=== PATIENT | male | born 1965 | race American Indian/Alaskan Native ===

== ENCOUNTER 2020-11-08 07:23 | Emergency (ER) | payer MEDICAID ==
[2020-11-08 07:34] VITALS: BP 134/78
--- NOTE | 2020-11-08 07:45 | Emergency Department Report ---
Abscess Boil HPI - HPI Chief Complaint: Skin/Abscess/Foreign Body Stated Complaint: KNOT ON LFT SIDE/PAIN Time Seen by Provider: 11/08/20 07:37 Duration: 1 Day History: No Fever, No Pain, No Purulent Drainage, No Numbness, No Foreign Body, No Previous History, No Insect Bite HPI: Cc: I have a lumpn on my side.". HPI this is a 54-year-old male with history of tobacco dependence who presents with a lump left flank. He has been doing a lot of heavy lifting. One morning he awakened and felt a lump left flank region. It is tender to palpation. Otherwise no pain at rest. He denies fever, cough, shortness of breath, weight loss. Home Medications: Previous Rx's Medication Instructions Recorded Last Taken Type Pantoprazole [Protonix] 40 mg PO QDAY #30 tablet 06/07/20 Unknown Rx Allergies/Adverse Reactions: Allergies Allergy/AdvReac Type Severity Reaction Status Date / Time No Known Allergies Allergy Verified 06/07/20 09:42 ED Review of Systems ROS: Stated complaint: KNOT ON LFT SIDE/PAIN Other details as noted in HPI Comment: All other systems reviewed and negative Constitutional: denies: fever, malaise Respiratory: denies: cough, shortness of breath ED Past Medical Hx - Past Medical History Previous Medical History?: No - Surgical History Past Surgical History?: No - Social History Smoking Status: Current Every Day Smoker Substance Use Type: None - Medications Home Medications: Home Medications Medication Instructions Recorded Confirmed Last Taken Type Pantoprazole [Protonix] 40 mg PO QDAY #30 tablet 06/07/20 Unknown Rx ED Abscess Boil Physical Exam - Exam General: Vital signs noted. No distress. Alert and acting appropriately. Size: 2 cm (2 cm cyst flesh-colored no erythema mobile left rib cage mid axillary line near ICS #6) Exam: Yes Normal Neurologic Exam, Yes Normal Circulation, No Tenderness, No Fluctuance, No Surrounding Cellulites/Erythema, No Lymphangitis, No Crepitation, No Heart Murmur ED Course Vital Signs 11/08/20 07:33 Temperature 97.9 F Pulse Rate 71 Respiratory 16 Rate Blood Pressure 134/78 [Right] O2 Sat by Pulse 96 Oximetry Critical care attestation.: If time is entered above; I have spent that time in minutes in the direct care of this critically ill patient, excluding procedure time. ED Medical Decision Making - Medical Decision Making Simple cyst left flank patient given extensive verbal education. I recommended follow-up with outpatient medicine physician in order to monitor the cyst for size and morphologic changes. Strongly recommended outpatient medicine for physical exam especially for preventive measures such as colonoscopy and prostate cancer screening. ED Disposition Clinical Impression: Cyst Disposition: DC-01 TO HOME OR SELFCARE Is pt being admited?: No Does the pt Need Aspirin: No Condition: Stable Additional Instructions: Please follow-up with outpatient physician within the next 3 months in order to follow the size and shape of the cyst. Referrals: CADEN WHITTEN MD [Staff Physician] - 3-5 Days
== END 2020-11-08 07:55 | disposition home or self-care (01) ==
LOC: ED 07:23
DX: L72.0 Epidermal cyst (principal); F17.200 Nicotine dependence, unspecified, uncomplicated; Z79.899 Other long term (current) drug therapy
CPT/HCPCS: 99281

== ENCOUNTER 2021-03-18 13:02 | Emergency (ER) | payer MEDICAID ==
--- NOTE | 2021-03-18 13:54 | Event Note ---
ED Screening Note Date of service: 03/18/21 Time: 13:53 ED Screening Note: 55y/o male with no past medical history currently on no medications has no known drug allergies presents to the emergency room for 2-week history of right groin pain that shoots down his leg. And a 4-day history of right upper arm numbness. Patient reports that his worse in his right arm when he tries to lift up. Patient denies any trauma. 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 This initial assessment/diagnostic orders/clinical plan/treatment(s) is/are subject to change based on patients health status, clinical progression and re- assessment by fellow clinical providers in the ED. Further treatment and workup at subsequent clinical providers discretion. Patient/guardian urged not to elope from the ED as their condition may be serious if not clinically assessed and managed. Initial orders include:
[2021-03-18 14:39] LABS: Basophils % (Auto) 0.8 % (0.0-1.8); Eosinophils # (Auto) 0.2 K/mm3 (0.0-0.4); Eosinophils % (Auto) 4.1 % (0.0-4.3); Hematocrit 44.7 % (35.5-45.6); Hemoglobin 15.5 gm/dl (11.8-15.2); Lymphocytes # (Auto) 1.9 K/mm3 (1.2-5.4); Mean Corpuscular HGB Conc 35 % (32-34); Mean Corpuscular Volume 91 fl (84-94); Monocytes # (Auto) 0.4 K/mm3 (0.0-0.8); Platelet Count 248 K/mm3 (140-440); Red Blood Count 4.92 M/mm3 (3.65-5.03); Red Cell Distribution Width 13.8 % (13.2-15.2)
[2021-03-18 14:44] LABS: Alanine Aminotransferase 34 units/L (7-56); Albumin 4.3 g/dL (3.9-5); BUN/Creatinine Ratio 13; Blood Urea Nitrogen 10 mg/dL (9-20); Calcium 9.6 mg/dL (8.4-10.2); Hemolysis Index 6
--- NOTE | 2021-03-18 22:15 | Emergency Department Report ---
ED Neuro Deficit HPI - General Chief Complaint: Neuro Symptoms/Deficit Stated Complaint: RT SIDE PAINS Time Seen by Provider: 03/18/21 22:06 Source: patient Mode of arrival: Ambulatory Limitations: No Limitations - History of Present Illness Initial Comments: Patient is a 55-year-old male who presents emergency room with complaints of right arm weakness, right arm numbness, right neck pain, right upper back pain. Patient states his symptoms started 4 days ago. Patient states his symptoms are worsening. 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 Patient states the neck pain radiates down his right upper back and right arm. Patient states his symptoms are worsening. Patient states he is having hand weakness. Patient states he is having difficulties gripping things with his right hand. Patient states that the numbness starts at the shoulder and radiates down as well. Patient states the numbness and the pain are intermittent. Patient states when he has been right neck and upper back it is a 10 out of 10. Patient states pain is better with rest. Patient states the pain is worse with movement. Patient also complains of right groin pain that radiates down his inner thigh. Patient states that he strained his right groin 2 weeks ago. Patient states he has not stopped working and has not rested the injury. Patient states the pain continues. Patient states the pain is better with rest and worse with movement. Patient states that he has taken Advil and Tylenol for these ailments. Patient states he gets some relief from the Tylenol and Advil. Patient states that it comes back shortly after the medication wears off. Patient states he has been doing a lot of heavy lifting but denies trauma. Patient states he does not have a primary care and has not seen an orthopedist for this as well. Patient denies recent travel. Patient denies recent international travel. Patient denies exposure to the novel coronavirus. Patient denies sick contacts. Patient denies fever and chills. Patient denies cough. Patient denies diarrhea. Patient denies coming in contact with anybody with symptoms of the novel coronavirus. -: Sudden History of same: No Place: home, work Severity: severe Quality: weak On Anticoagulants: No Context: sudden onset Associated Symptoms: weakness. denies: confusion, chest pain, cough, diaphoresis, fever/chills, headaches, loss of appetite, malise, nausea/vomiting, vertigo, seizures, shortness of breath, syncope - Related Data Home Medications: Previous Rx's Medication Instructions Recorded Last Taken Type Pantoprazole [Protonix] 40 mg PO QDAY #30 tablet 06/07/20 Unknown Rx Acetaminophen/Codeine [Tylenol 1 tab PO Q6H PRN #12 tab 03/19/21 Unknown Rx /Codeine # 3 tab] RX: Ibuprofen [Motrin 800 MG tab] 800 mg PO Q8HR PRN #30 tablet 03/19/21 Unknown Rx methOCARBAMOL [Robaxin TAB] 500 mg PO Q6H PRN #20 tablet 03/19/21 Unknown Rx Allergies/Adverse Reactions: Allergies Allergy/AdvReac Type Severity Reaction Status Date / Time No Known Allergies Allergy Verified 06/07/20 09:42 ED Review of Systems ROS: Stated complaint: RT SIDE PAINS Other details as noted in HPI Constitutional: weakness. denies: chills, fever Eyes: denies: eye pain, eye discharge, vision change ENT: denies: ear pain, throat pain Respiratory: denies: cough, shortness of breath, wheezing Cardiovascular: denies: chest pain, palpitations Endocrine: no symptoms reported Gastrointestinal: denies: abdominal pain, nausea, diarrhea Genitourinary: denies: urgency, dysuria Musculoskeletal: as per HPI. denies: joint swelling, arthralgia Skin: denies: rash, lesions Neurological: as per HPI, weakness. denies: headache, paresthesias Psychiatric: denies: anxiety, depression Hematological/Lymphatic: denies: easy bleeding, easy bruising ED Past Medical Hx - Past Medical History Previous Medical History?: No - Surgical History Past Surgical History?: No - Family History Family history: no significant - Social History Smoking Status: Current Every Day Smoker Substance Use Type: Alcohol - Medications Home Medications: Home Medications Medication Instructions Recorded Confirmed Last Taken Type Pantoprazole [Protonix] 40 mg PO QDAY #30 tablet 06/07/20 Unknown Rx Acetaminophen/Codeine [Tylenol 1 tab PO Q6H PRN #12 tab 03/19/21 Unknown Rx /Codeine # 3 tab] RX: Ibuprofen [Motrin 800 MG tab] 800 mg PO Q8HR PRN #30 tablet 03/19/21 Unknown Rx methOCARBAMOL [Robaxin TAB] 500 mg PO Q6H PRN #20 tablet 03/19/21 Unknown Rx ED Neuro Physical Exam - General Limitations: No Limitations General appearance: alert, in no apparent distress Suspected Stroke: No - Head Head exam: Present: atraumatic, normocephalic - Eye Eye exam: Present: normal appearance, PERRL Pupils: Present: normal accommodation - ENT ENT exam: Present: mucous membranes moist - Neck Neck exam: Present: normal inspection, tenderness (Tenderness over the right lateral aspect as well as the spinal process.), full ROM. Absent: meningismus - Respiratory Respiratory exam: Present: normal lung sounds bilaterally. Absent: respiratory distress, wheezes, rales - Cardiovascular Cardiovascular Exam: Present: regular rate, normal rhythm. Absent: systolic murmur, diastolic murmur, rubs, gallop - GI/Abdominal GI/Abdominal exam: Present: soft, normal bowel sounds. Absent: distended, tenderness, guarding - Rectal Rectal exam: Present: deferred - Extremities Exam Extremities exam: Present: normal inspection, full ROM, tenderness - Back Exam Back exam: Present: normal inspection, full ROM, muscle spasm (Noted in the right trapezius muscle). Absent: tenderness, CVA tenderness (R), CVA tenderness (L), paraspinal tenderness, vertebral tenderness - Neurological Exam Neurological exam: Present: alert, oriented X3, CN II-XII intact, normal gait, other (A notable difference from the right. the right is weaker than the left. Rest of the musculoskeletal and motor exam is normal.). Absent: abnormal gait - NIHSS Assessment Interval: Baseline 1a. Level of Consciousness: alert/keenly responsive 1b. LOC Questions: answers both correctly 1c. LOC Commands: performs tasks correctly 2. Best Gaze: normal 3. Visual: no visual loss 4. Facial Palsy: normal symmetrical movement 5b. Motor Arm Right: no drift 5a. Motor Arm Left: no drift 6a. Motor Leg Left: no drift 6b. Motor Leg Right: no drift 7. Limb Ataxia: absent 8. Sensory: normal 9. Best Language: no aphasia 10. Dysarthria: normal 11. Extinction/Inattention: no abnormality Total Score: 0 Stroke Severity: No Stroke Symptoms - Psychiatric Psychiatric exam: Present: normal affect, normal mood - Skin Skin exam: Present: warm, dry, intact, normal color. Absent: rash ED Course Vital Signs 03/18/21 03/18/21 13:21 22:14 Temperature 98 F Pulse Rate 62 73 Respiratory 18 18 Rate Blood Pressure 139/80 Blood Pressure 125/79 [Left] O2 Sat by Pulse 100 98 Oximetry - Reevaluation(s) Reevaluation #1: I discussed all results and clinical findings with patient. I discussed plan of care with patient. Patient agrees with plan of care. Patient is stable for discharge. Patient will be discharged home. Patient given discharge instructions. Patient voiced understanding of discharge instructions. 03/19/21 00:34 - Lab Data Result diagrams: 03/18/21 14:07 03/18/21 14:07 Lab Results 03/18/21 03/18/21 Range/Units 14:07 14:07 WBC 4.8 (4.5-11.0) K/mm3 RBC 4.92 (3.65-5.03) M/mm3 Hgb 15.5 H (11.8-15.2) gm/dl Hct 44.7 (35.5-45.6) % MCV 91 (84-94) fl MCH 32 (28-32) pg MCHC 35 H (32-34) % RDW 13.8 (13.2-15.2) % Plt Count 248 (140-440) K/mm3 Lymph % (Auto) 40.0 H (13.4-35.0) % Haakon % (Auto) 8.0 H (0.0-7.3) % Eos % (Auto) 4.1 (0.0-4.3) % Baso % (Auto) 0.8 (0.0-1.8) % Lymph # (Auto) 1.9 (1.2-5.4) K/mm3 Haakon # (Auto) 0.4 (0.0-0.8) K/mm3 Eos # (Auto) 0.2 (0.0-0.4) K/mm3 Baso # (Auto) 0.0 (0.0-0.1) K/mm3 Seg Neutrophils % 47.1 (40.0-70.0) % Seg Neutrophils # 2.3 (1.8-7.7) K/mm3 Sodium 141 (137-145) mmol/L Potassium 4.5 (3.6-5.0) mmol/L Chloride 103.6 (98-107) mmol/L Carbon Dioxide 27 (22-30) mmol/L Anion Gap 15 mmol/L BUN 10 (9-20) mg/dL Creatinine 0.8 (0.8-1.3) mg/dL Estimated GFR > 60 ml/min BUN/Creatinine Ratio 13 % Glucose 105 H (75-100) mg/dL Calcium 9.6 (8.4-10.2) mg/dL Total Bilirubin 0.40 (0.1-1.2) mg/dL AST 30 (5-40) units/L ALT 34 (7-56) units/L Alkaline Phosphatase 101 (35-129) units/L Total Protein 7.7 (6.3-8.2) g/dL Albumin 4.3 (3.9-5) g/dL Albumin/Globulin Ratio 1.3 % - Radiology Data Radiology results: report reviewed CT cervical spine wo con INDICATION: Pt complains of RIGHT arm weakness, neck pain. arm numbness. TECHNIQUE: All CT scans at this location are performed using the following dose modulation technique: Automated exposure control. CONTRAST: None. COMPARISON: None available. FINDINGS: Satisfactory alignment without bony injury or significant degenerative change. No soft tissue injury. IMPRESSION: Unremarkable CT cervical spine without contrast. - Medical Decision Making Patient is a 55-year-old male that presents emergency room with complaints of right-sided neck pain, right arm pain, right arm numbness, right hand weakness and arm weakness. Patient symptoms been going on for 4 days. Patient symptoms worsening. Patient neuro exam is notable for difference strength left and the right side. The rest of the patient's neuro exam was unremarkable. Patient had labs done which were essentially unremarkable. Patient had a CT scan of the cervical spine due to the abnormal neurologic findings of the right arm and francois nd. Patient CT scan was negative for acute findings. Patient stable for discharge. Patient to be discharged home. Patient will be referred to neurosurgery and orthopedist. - Differential Diagnosis Cervical radiculopathy, cervical nerve impingement, neck pain, weakness Critical care attestation.: If time is entered above; I have spent that time in minutes in the direct care of this critically ill patient, excluding procedure time. ED Disposition Clinical Impression: Cervical radiculopathy, Neck pain, Right hand weakness, Right arm numbness, Right leg pain, Strain of right groin Cervical strain Qualifiers: Encounter type: initial encounter Qualified Code(s): S16.1XXA - Strain of muscle, fascia and tendon at neck level, initial encounter Disposition: - TO HOME OR SELFCARE Is pt being admited?: No Does the pt Need Aspirin: No Condition: Stable Instructions: Neck Exercises, Radicular Pain, Cervical Sprain, Muscle Strain, Cervical Radiculopathy, [id number] Additional Instructions: Patient to follow-up with primary care in 2 to 3 days. Patient to follow-up with orthopedist and neurosurgery in 2 to 3 days. Patient to rest. Patient to increase water. Patient to avoid strenuous exercise or heavy lifting until cleared by orthopedist and neurosurgery. Patient to take Tylenol or ibuprofen as needed for pain. Patient to take meds as directed. Patient to return to the ER if condition worsens, changes or new symptoms arise. Prescriptions: RX: Ibuprofen [Motrin 800 MG tab] 800 mg PO Q8HR PRN #30 tablet PRN Reason: Pain, Moderate (4-6) methOCARBAMOL [Robaxin TAB] 500 mg PO Q6H PRN #20 tablet PRN Reason: Spasms Acetaminophen/Codeine [Tylenol /Codeine # 3 tab] 1 tab PO Q6H PRN #12 tab PRN Reason: Pain , Severe (7-10) Referrals: PRIMARY MD FILIBERTO [Primary Care Provider] - 2-3 Days BONNIE HILARIO II, MD [Staff Physician] - 2-3 Days WES KAUR MD [Staff Physician] - 2-3 Days Forms: Work/School Release Form(ED) Time of Disposition: 00:31
--- NOTE | 2021-03-19 00:06 | Cat Scan Report ---
CT cervical spine wo con INDICATION: Pt complains of RIGHT arm weakness, neck pain. arm numbness. TECHNIQUE: All CT scans at this location are performed using the following dose modulation technique: Automated exposure control. CONTRAST: None. COMPARISON: None available. FINDINGS: Satisfactory alignment without bony injury or significant degenerative change. No soft tiss ue injury. IMPRESSION: Unremarkable CT cervical spine without contrast. Signer Name: Julián Puente MD Signed: 03/19/2021 12:02 AM Workstation Name: [id number]
[2021-03-19 00:53] VITALS: BP 126/80
== END 2021-03-19 01:01 | disposition home or self-care (01) ==
LOC: ED 13:02
DX: S16.1XXA Strain of muscle, fascia and tendon at neck level, initial encounter (principal); S39.011A Strain of muscle, fascia and tendon of abdomen, initial encounter; M79.601 Pain in right arm; F17.200 Nicotine dependence, unspecified, uncomplicated; Z79.899 Other long term (current) drug therapy; X50.9XXA Other and unspecified overexertion or strenuous movements or postures, initial encounter; Y93.89 Activity, other specified; Y92.89 Other specified places as the place of occurrence of the external cause; Y99.8 Other external cause status
CPT/HCPCS: 36415; 72125; 80053; 85025